=== PATIENT | male | born 1970 | race Caucasian/White ===

== ENCOUNTER → 2021-10-20 08:52 | Outpatient (CLI) | payer OTHER, SELFPAY ==
--- NOTE | 2021-10-20 08:57 | DI.MRI.S_ITS ---
PROCEDURE: MR FOOT RT WO CON INDICATIONS: Pain in right foot TECHNIQUE: Noncontrast sagittal T1 spin echo and T2 fast spin echo with fat saturation, long-axis T1 spin echo and STIR, short-axis T1 spin echo and T2 fast spin echo with fat saturation through the forefoot. COMPARISON: None. FINDINGS: Image quality: Excellent. Bones and joints: There is ill-defined osseous edema within the proximal 2nd metatarsal shaft extending to the metatarsal base. No hypointense fracture line is seen. No additional site of trabecular bone injury is seen. The sesamoid bones appear in expected positions, without internal edema. Mild degenerative changes are seen at the 1st tarsometatarsal joint and 1st metatarsophalangeal joint as well as scattered throughout the interphalangeal joints of the toes. No intraosseous lesions. Soft tissues: The visualized plantar foot muscles demonstrate normal signal and bulk. Visualized flexor and extensor tendons appear intact, without tenosynovitis. The distal insertions of the peroneus brevis and longus tendons appear intact. The principal Lisfranc ligament appears intact. No soft tissue ganglion cysts or bursal fluid collections. Sagittal images demonstrate no evidence for plantar plate tears. IMPRESSION: 1. Osseous edema within the proximal 2nd metatarsal shaft is suspicious for mild acute stress reaction. No definite fracture line is seen. 2. Mild degenerative changes at the 1st tarsometatarsal joint and 1st metatarsophalangeal joint. Dictated by: Ray Villalpando M.D. on 10/20/2021 at 11:49 Approved by: Ray Villalpando M.D. on 10/20/2021 at 11:54
== END ==
PROVIDERS: Referring Provider Family Medicine; Visit Provider Family Medicine
DX: M79.671 Pain in right foot (principal)
CPT/HCPCS: 73718